=== PATIENT | female | born 1945 ===

== ENCOUNTER 2017-01-20 20:38 | Inpatient (IN) | payer MEDICARE, OTHER ==
[2017-01-20 22:35] LABS: BASO # 0.1 K/uL (0.0-0.2); BASO % 0.7 % (0.0-2.0); EOS # 0.3 K/uL (0.0-0.7); HEMATOCRIT 41.2 % (34.0-47.0); LYMPH # 2.8 K/uL (1.0-4.3); MEAN CELL VOLUME 82.8 fL (81.0-99.0); MEAN CORPUSCULAR HGB CONC 32.6 g/dL (33.0-37.0); MEAN PLATELET VOLUME 8.2 fL (7.2-11.7); MONO # 0.9 K/uL (0.0-0.8); MONO % 10.8 % (0.0-10.0); NRBC % 0.1 % (0.0-2.0); RED CELL DISTRIBUTION WIDTH 13.4 % (11.5-14.5); WHITE BLOOD COUNT 8.3 K/uL (4.8-10.8)
[2017-01-20 22:42] LABS: BILIRUBIN,TOTAL 0.8 mg/dL (0.2-1.3)
[2017-01-20 22:43] LABS: TOTAL PROTEIN 8.9 g/dL (6.3-8.3)
--- NOTE | 2017-01-20 22:47 | C.PDOC ---
History Of Present Illness 71 y/o female presents to the ED with complains of sudden onset bright red blood per rectum this afternoon. Pt denies rectal pain, abdominal pain, fever, dizziness, lightheadedness, chest pain, SOB or any other complaints. PMHx cardiac disease. Time Seen by Provider: 01/20/17 22:01 Chief Complaint (Nursing): GI Problem History Per: Patient History/Exam Limitations: no limitations Onset/Duration Of Symptoms: Hrs Current Symptoms Are (Timing): Still Present Amount of Blood Loss: Large Severity: Moderate Quality Of Discomfort: denies: "Pain" Associated Symptoms: Rectal Bleeding. denies: Vomiting, Diarrhea, Lightheadedness Recent travel outside of the [place]: No Past Medical History Reviewed: Historical Data, Nursing Documentation, Vital Signs Vital Signs: Last Vital Signs Temp 98.2 F 01/20/17 22:06 Pulse 63 01/20/17 22:06 Resp 16 01/20/17 22:06 BP 186/77 H 01/20/17 22:06 Pulse Ox 97 01/20/17 22:48 - Medical History PMH: CHF, COPD, HTN Surgical History: Coronary Stent (2 stents) Family History: States: Unknown Family Hx - Social History Hx Tobacco Use: No Hx Alcohol Use: No Hx Substance Use: No - Immunization History Hx Tetanus Toxoid Vaccination: No Hx Influenza Vaccination: Yes Hx Pneumococcal Vaccination: Yes Review Of Systems Except As Marked, All Systems Reviewed And Found Negative. Constitutional: Negative for: Fever Cardiovascular: Negative for: Chest Pain Respiratory: Negative for: Shortness of Breath Gastrointestinal: Positive for: Hematochezia. Negative for: Vomiting, Abdominal Pain, Diarrhea, Rectal Pain Neurological: Negative for: Dizziness Physical Exam - Physical Exam Appears: Non-toxic, No Acute Distress Skin: Warm, Dry, No Rash Head: Atraumatic, Normacephalic Chest: Symmetrical Cardiovascular: Rhythm Regular, No Murmur Respiratory: Normal Breath Sounds, No Rales, No Rhonchi, No Wheezing Gastrointestinal/Abdominal: Normal Exam, Soft, No Tenderness Rectal: Maroon Stool (copious amounts), No Hemorrhoids Extremity: Normal ROM Extremity: Bilateral: Atraumatic Neurological/Psych: Oriented x3, Normal Speech Gait: Steady ED Course And Treatment - Laboratory Results Result Diagrams: 01/20/17 22:28 01/20/17 22:28 Lab Interpretation: No Acute Changes O2 Sat by Pulse Oximetry: 97 (on room air) Pulse Ox Interpretation: Normal Reevaluation Time: 23:22 Reassessment Condition: Unchanged (Patient remains stable.) - Physician Consult Information Time Consulting Physician Contacted: 23:22 Physician Contacted: Marta Javier Outcome Of Conversation: Patient to be admitted for GI evaluation. Medical Decision Making Medical Decision Making: Plan: labs, IV fluids; admit Disposition - Disposition Disposition: HOSPITALIZED Disposition Time: 23:23 Condition: SERIOUS - POA Present On Arrival: None - Clinical Impression Clinical Impression: Gastrointestinal hemorrhage - Scribe Statement The provider has reviewed the documentation as recorded by the Sidney Russell Provider Attestation: All medical record entries made by the Sidney were at my direction and personally dictated by me. I have reviewed the chart and agree that the record accurately reflects my personal performance of the history, physical exam, medical decision making, and the department course for this patient. I have also personally directed, reviewed, and agree with the discharge instructions and disposition.
[2017-01-21] MEDS: Sodium Chloride 0.9% 1,000 ML IV SCH ×2 (00:23→07:57)
[2017-01-21 04:39] LABS: BASO # 0.1 K/uL (0.0-0.2); BASO % 0.8 % (0.0-2.0); EOS # 0.3 K/uL (0.0-0.7); EOS % 3.8 % (0.0-4.0); HEMATOCRIT 35.5 % (34.0-47.0); LYMPH # 3.1 K/uL (1.0-4.3); LYMPH % 37.3 % (20.0-40.0); MEAN CELL VOLUME 82.8 fL (81.0-99.0); MEAN CORPUSCULAR HEMOGLOBIN 27.7 pg (27.0-31.0); MEAN CORPUSCULAR HGB CONC 33.5 g/dL (33.0-37.0); MEAN PLATELET VOLUME 7.8 fL (7.2-11.7); MONO # 0.8 K/uL (0.0-0.8); MONO % 9.2 % (0.0-10.0); RED CELL DISTRIBUTION WIDTH 13.3 % (11.5-14.5); WHITE BLOOD COUNT 8.4 K/uL (4.8-10.8)
[2017-01-21] MEDS ORDERED: Pantoprazole 80 MG in Sodium Chloride 0.9% 100 ML IVP ONE (07:00)
[2017-01-21] MEDS ORDERED: Pantoprazole 80 MG in Sodium Chloride 0.9% 100 ML IV ONE (08:00)
[2017-01-21] MEDS ORDERED: Peg-Electrolyte Oral Soln 4L (Golytely) PO STA (08:09)
[2017-01-21] MEDS ORDERED: Bisacodyl 5mg EC Tab PO STA (08:09)
[2017-01-21] MEDS: Pantoprazole 80 MG in Sodium Chloride 0.9% 100 ML IV SCH ×2 (08:23→17:40)
--- NOTE | 2017-01-21 09:52 | CP.PCM.CON ---
<Magi Finney - Last Filed: 01/21/17 10:51> History of Present Illness - History of Present Illness History of Present Illness: Gastroenterology Fellow/PGY4 Consult Note 71 year old female with history of Hypertension, Arthritis, and CAD s/p stents on Plavix (last dose on the morning of 01/20) presenting with hematochezia. Patient describes feeling dizzy all day yesterday. She was able to eat three normal meals without nausea or vomiting. Around 830PM, she notes a wet sensation in her underpants revealing bright red blood with clots. Shortly after , while ambulating she again felt a gush of blood with clots followed by ER presentation. She had an additional four episodes since ER presentation and two additional episodes in the ICU. Denies abdominal pain, bloating, indigestion, heartburn, acid reflux, distension, lightheadedness, syncopal episode, melena, hematemesis, chest pain, shortness of breath, weight loss, diarrhea, or constipation. Admits to use of Ibuprofen twice a week for right arm arthritis. Prior colonoscopy about ten years ago endorsed to be normal. No prior EGD. Family- denies colon cancer Social-Quit tobacco in 2010, previous 1 pach every two days for forty years, denies alcohol or illicit drug use Surgery-cardiac stents Review of Systems - Review of Systems Review of Systems: A 12-point review of systems negative except for as above Past Patient History - Past Medical History & Family History Past Medical History?: Yes - Past Social History Smoking Status: Former Smoker - CARDIAC Hx Congestive Heart Failure: Yes Hx Hypertension: Yes - PULMONARY Hx Chronic Obstructive Pulmonary Disease (COPD): Yes - NEUROLOGICAL Hx Neurological Disorder: No - HEENT Hx HEENT Problems: No - RENAL Hx Chronic Kidney Disease: No - ENDOCRINE/METABOLIC Hx Endocrine Disorders: No - HEMATOLOGICAL/ONCOLOGICAL Hx Blood Disorders: No - INTEGUMENTARY Hx Dermatological Problems: No - MUSCULOSKELETAL/RHEUMATOLOGICAL Hx Musculoskeletal Disorders: No Hx Falls: No - GASTROINTESTINAL Hx Gastrointestinal Disorders: No - GENITOURINARY/GYNECOLOGICAL Hx Genitourinary Disorders: No - PSYCHIATRIC Hx Substance Use: No - SURGICAL HISTORY Hx Coronary Stent: Yes (2 stents) - ANESTHESIA Hx Anesthesia: Yes Hx Anesthesia Reactions: No Meds Allergies/Adverse Reactions: Allergies Allergy/AdvReac Type Severity Reaction Status Date / Time peanut Allergy Verified 01/20/17 22:13 Penicillins Allergy Verified 01/20/17 22:13 - Medications Medications: Current Medications Carvedilol (Coreg) 12.5 mg PO DAILY [facility] Sodium Chloride (Sodium Chloride 0.9%) 1,000 mls @ 100 mls/hr IV .Q10H [facility] Last Admin: 01/21/17 07:57 Dose: 100 mls/hr Pantoprazole Sodium 80 mg/ (Sodium Chloride) 100 mls @ 10 mls/hr IV .Q10H [facility] PRN Reason: 8 MG/HR Last Admin: 01/21/17 08:23 Dose: 10 mls/hr Physical Exam - Constitutional Appears: Non-toxic, No Acute Distress - Head Exam Head Exam: ATRAUMATIC, NORMOCEPHALIC - Eye Exam Eye Exam: EOMI, PERRL Pupil Exam: PERRL. absent: Miosis, Mydriatic - ENT Exam ENT Exam: Mucous Membranes Moist, Normal Oropharynx - Neck Exam Neck exam: Positive for: Full Rom, Normal Inspection - Respiratory Exam Respiratory Exam: Clear to Auscultation Bilateral. absent: Rales, Rhonchi, Wheezes - Cardiovascular Exam Cardiovascular Exam: RRR, +S1, +S2. absent: Gallop, Rubs - GI/Abdominal Exam GI & Abdominal Exam: Normal Bowel Sounds, Soft. absent: Distended, Firm, Guarding, Organomegaly, Rebound, Rigid, Tenderness - Extremities Exam Extremities exam: Positive for: full ROM. Negative for: pedal edema - Neurological Exam Neurological exam: Alert - Psychiatric Exam Psychiatric exam: Normal Affect, Normal Mood - Skin Skin Exam: Dry, Intact, Normal Color, Warm Results - Vital Signs Recent Vital Signs: Last Vital Signs Temp 97.7 F 01/21/17 04:21 Pulse 71 01/21/17 04:21 Resp 18 01/21/17 04:21 BP 160/68 H 01/21/17 04:21 Pulse Ox 95 01/21/17 04:21 - Labs Result Diagrams: 01/21/17 04:31 01/20/17 22:28 Labs: Laboratory Results - last 24 hr 01/21/17 04:31 WBC 8.4 RBC 4.28 Hgb 11.9 Hct 35.5 MCV 82.8 MCH 27.7 MCHC 33.5 RDW 13.3 Plt Count 235 MPV 7.8 Neut % (Auto) 48.9 L Lymph % (Auto) 37.3 Drew % (Auto) 9.2 Eos % (Auto) 3.8 Baso % (Auto) 0.8 Neut # 4.1 Lymph # 3.1 Drew # 0.8 Eos # 0.3 Baso # 0.1 Assessment & Plan - Assessment and Plan (Free Text) Assessment: 71 year old female with history of Hypertension, Arthritis, and CAD s/p stents on Plavix (last dose on the morning of 01/20) presenting with hematochezia. Laboratory findings show stable blood count with note of one gram drop since admission. Prior colonoscopy about ten years ago endorsed to be normal. No prior EGD. Plan: >hemodynamically stable >on beta mickey at home >active lower GI bleed with recurrent episodes >DDX: diverticulosis, AVM, ulcer- NSAID use >PPI drip >serial H/H 1030 >Type and Cross >urgent colonoscopy >bowel prep- GoLytely, Dulcolax 10mg, tap water enema >clear liquids, NPO since 1015AM >further recommendations based on colonoscopy results <Yaya Pendleton - Last Filed: 01/21/17 12:26> Meds - Medications Medications: Current Medications Carvedilol (Coreg) 12.5 mg PO DAILY [facility] Last Admin: 01/21/17 09:48 Dose: 12.5 mg Sodium Chloride (Sodium Chloride 0.9%) 1,000 mls @ 100 mls/hr IV .Q10H [facility] Last Admin: 01/21/17 07:57 Dose: 100 mls/hr Pantoprazole Sodium 80 mg/ (Sodium Chloride) 100 mls @ 10 mls/hr IV .Q10H [facility] PRN Reason: 8 MG/HR Last Admin: 01/21/17 08:23 Dose: 10 mls/hr Lactated Ringer's (Lactated Ringer's) 1,000 mls @ 125 mls/hr IV .Q8H [facility] Results - Vital Signs Recent Vital Signs: Last Vital Signs Temp 97.9 F 01/21/17 11:29 Pulse 63 01/21/17 11:29 Resp 17 01/21/17 11:29 BP 177/65 H 01/21/17 11:29 Pulse Ox 100 01/21/17 11:29 - Labs Result Diagrams: 01/21/17 10:46 01/20/17 22:28 Labs: Laboratory Results - last 24 hr 01/21/17 01/21/17 04:31 10:46 WBC 8.4 7.5 RBC 4.28 4.77 Hgb 11.9 13.1 Hct 35.5 39.9 MCV 82.8 83.6 MCH 27.7 27.5 MCHC 33.5 32.9 L RDW 13.3 13.3 Plt Count 235 279 MPV 7.8 7.8 Neut % (Auto) 48.9 L 56.4 Lymph % (Auto) 37.3 30.1 Drew % (Auto) 9.2 9.1 Eos % (Auto) 3.8 3.6 Baso % (Auto) 0.8 0.8 Neut # 4.1 4.2 Lymph # 3.1 2.3 Drew # 0.8 0.7 Eos # 0.3 0.3 Baso # 0.1 0.1 Blood Type O POSITIVE Antibody Screen Negative Attending/Attestation - Attestation I have personally seen and examined this patient.: Yes I have fully participated in the care of the patient.: Yes I have reviewed all pertinent clinical information: Yes Notes (Text): 01/21/17 12:20 I have seen and examined patient with GI fellow. Agree with above documentation with the following additions. In brief, this is a 71 year old female with history of CAD s/p stent (2010) on plavix, HTN, arthritis who presents to hospital with complaint of rectal bleeding. Her symptoms began yesterday at approximately 830 pm when she developed two episodes of hematochezia along with feeling of dizziness throughout the day. Prior to this she was in usual state of health. She came to hospital and had several additional episodes of gross hematochezia and was admitted to ICU critical care. She otherwise denies abdominal pain, nausea, vomiting, fever/chills, weight loss, or similar prior episodes. She had a colonoscopy 10 years ago which was normal as per patient. HTN CAD s/p stent in 2010 on plavix (last dose yesterday) Arthritis Rectal bleeding - repeated acute episodes, posing threat to patient life, currently in critical care unit - NPO - Continue to monitor H/H - Will plan for urgent colonoscopy for evaluation of rectal bleeding, rule out underlying malignancy - Golytely bowel preparation with dulcolax now, plan for urgent procedure in afternoon - Further plan pending endoscopic findings
[2017-01-21 10:53] LABS: BASO # 0.1 K/uL (0.0-0.2); BASO % 0.8 % (0.0-2.0); EOS # 0.3 K/uL (0.0-0.7); EOS % 3.6 % (0.0-4.0); HEMATOCRIT 39.9 % (34.0-47.0); LYMPH # 2.3 K/uL (1.0-4.3); LYMPH % 30.1 % (20.0-40.0); MEAN CELL VOLUME 83.6 fL (81.0-99.0); MEAN CORPUSCULAR HEMOGLOBIN 27.5 pg (27.0-31.0); MEAN CORPUSCULAR HGB CONC 32.9 g/dL (33.0-37.0); MEAN PLATELET VOLUME 7.8 fL (7.2-11.7); MONO # 0.7 K/uL (0.0-0.8); MONO % 9.1 % (0.0-10.0); NRBC % 0.1 % (0.0-2.0); RED CELL DISTRIBUTION WIDTH 13.3 % (11.5-14.5); WHITE BLOOD COUNT 7.5 K/uL (4.8-10.8)
[2017-01-21] MEDS ORDERED: Propofol 10 mg/ml Inj (20 ML) ONE (10:59)
[2017-01-21] MEDS ORDERED: Midazolam 2 MG/2 ML VIAL ONE (10:59)
[2017-01-21] MEDS ORDERED: Etomidate 20 mg/10ml Inj IV ONE (12:04)
[2017-01-21] MEDS ORDERED: Lactated Ringer's 1,000 ML IV SCH (12:15)
--- NOTE | 2017-01-21 19:59 | HP ---
HISTORY OF PRESENT ILLNESS: This is a 71-year-old female with history of multiple medical p roblems, presented to Emergency Room because of rectal bleeding that started a few hours prior to thi s admission. The patient was evaluated in the Emergency Room and she was found to have dark bloody s tool. The patient was admitted after type and cross for 2 units of packed RBCs and for monitoring of hemoglobin and hematocrit and monitoring for further rectal bleeding. The patient denied to have an y abdominal pain associated with her symptoms, denied to have any previous similar symptoms. The pat ient has been told to do colonoscopy frequently and until this admission the patient never had any co lonoscopy done. REVIEW OF SYSTEMS: Other review of systems is negative. ALLERGIES: POSITIVE FOR PENICILLIN AND PEANUTS. SOCIAL HISTORY: Positive for a smoker, more than 30 years. Denies EtOH or substance abuse. FAMILY HISTORY: Noncontributory. PAST MEDICAL HISTORY: Hypertension, coronary artery disease, hypercholesterolemia. HOME MEDICATIONS: Hydralazine 50 mg twice a day, amlodipine 2.5 mg daily, Crestor 20 mg daily, Pepci d 20 mg daily, Plavix 75 mg daily and Coreg 12.5 mg twice a day. PHYSICAL EXAMINATION: GENERAL: The patient is in bed, comfortable, not in any cardiopulmonary distress. VITAL SIGNS: Blood pressure of 166/76, temperature 97.4, respiratory rate 18 and pulses 61. HEENT: Pupils equal, reactive to light. Normal-appearing mucosa of the conjunctivae, oropharyngeal and nasal membrane mucosa. NECK: Supple, no JVD, no carotid bruit, no lymph node, no thyromegaly. CHEST AND LUNGS: Bilateral symmetrical expansion, good air exchange, no rales, no rhonchi. CARDIOVASCULAR: PMI not localized. S1, S2. No additional sounds. ABDOMEN: Normoactive bowel sounds, no tenderness, no organomegaly, no masses. EXTREMITIES: No cyanosis, no clubbing, no edema. CENTRAL NERVOUS SYSTEM: Alert, awake, oriented x 3. No neurological deficits could be appreciated. ASSESSMENT: 1. Painless rectal bleeding. Differential diagnosis includes diverticulosis, arteriovenous malforma tion, hemorrhoids, internal hemorrhoids. 2. Hypertension. 3. Coronary artery disease. PLAN: GI consult for possible colonoscopy and monitor hemoglobin and hematocrit. I will resume anti hypertensive medications, but keep patient n.p.o. [facility] Casandra Javier MD cc: [phone] TT: 01/21/2017 19:58:57 [facility] # [id number] mn
[2017-01-22] MEDS: Pantoprazole 80 MG in Sodium Chloride 0.9% 100 ML IV SCH (02:02)
[2017-01-22 09:05] LABS: BASO % 0.7 % (0.0-2.0); EOS # 0.3 K/uL (0.0-0.7); EOS % 4.3 % (0.0-4.0); HEMATOCRIT 36.6 % (34.0-47.0); LYMPH # 2.6 K/uL (1.0-4.3); MEAN CORPUSCULAR HEMOGLOBIN 26.8 pg (27.0-31.0); MEAN CORPUSCULAR HGB CONC 32.4 g/dL (33.0-37.0); MEAN PLATELET VOLUME 7.9 fL (7.2-11.7); MONO # 0.6 K/uL (0.0-0.8); MONO % 8.8 % (0.0-10.0); NRBC % 0.1 % (0.0-2.0); RED CELL DISTRIBUTION WIDTH 13.4 % (11.5-14.5); WHITE BLOOD COUNT 6.6 K/uL (4.8-10.8)
[2017-01-22 09:12] LABS: CHLORIDE 99 mmol/L (98-107)
[2017-01-22 09:13] LABS: SODIUM 140 mmol/L (132-148)
[2017-01-22 09:15] LABS: ALKALINE PHOSPHATASE 76 U/L (38-126); ALT/SGPT 19 U/L (9-52); AST/SGOT 35 U/L (14-36); BILIRUBIN,TOTAL 0.4 mg/dL (0.2-1.3); BLOOD UREA NITROGEN 16 mg/dL (7-17); CARBON DIOXIDE 26 mmol/L (22-30); GFR AFRICAN-AMERICAN > 60; GLUCOSE,RANDOM 95 mg/dL (65-105); TOTAL PROTEIN 7.4 g/dL (6.3-8.3)
[2017-01-22 09:16] LABS: CALCIUM 8.8 mg/dl (8.6-10.4)
--- NOTE | 2017-01-22 11:32 | CP.PCM.PN ---
<RegMagi - Last Filed: 01/22/17 11:41> Subjective - Date & Time of Evaluation Date of Evaluation: 01/22/17 Time of Evaluation: 11:32 - Subjective Subjective: Gastroenterology Fellow/PGY4 Progress Note Patient feels well. Denies further episodes of rectal bleeding. Tolerating clear liquids. A 12-point review of systems negative except for as above. Objective - Vital Signs/Intake and Output Vital Signs (last 24 hours): Temp Pulse Resp BP Pulse Ox 98 F 69 17 113/90 97 01/22/17 08:00 01/22/17 10:00 01/22/17 10:00 01/22/17 10:21 01/22/17 10:00 Intake and Output: 01/22/17 01/22/17 06:59 18:59 Intake Total 330 10 Output Total 750 Balance -420 10 - Medications Medications: Current Medications Amlodipine Besylate (Norvasc) 2.5 mg PO DAILY [facility] Last Admin: 01/21/17 14:06 Dose: 2.5 mg Carvedilol (Coreg) 12.5 mg PO DAILY [facility] Last Admin: 01/22/17 10:21 Dose: 12.5 mg Hydralazine HCl (Apresoline) 50 mg PO BID [facility] Last Admin: 01/21/17 22:28 Dose: 50 mg Pantoprazole Sodium 80 mg/ (Sodium Chloride) 100 mls @ 10 mls/hr IV .Q10H [facility] PRN Reason: 8 MG/HR Last Admin: 01/22/17 02:02 Dose: 10 mls/hr - Labs Labs: 01/22/17 08:59 01/22/17 08:59 PT 11.2 SECONDS (9.7-12.2) 01/20/17 22:28 INR 1.0 01/20/17 22:28 APTT 34 SECONDS (21-34) 01/20/17 22:28 - Constitutional Appears: Non-toxic, No Acute Distress - Head Exam Head Exam: ATRAUMATIC, NORMOCEPHALIC - Eye Exam Eye Exam: EOMI, PERRL Pupil Exam: absent: Miosis, Mydriatic, PERRL - ENT Exam ENT Exam: Mucous Membranes Moist, Normal Oropharynx - Neck Exam Neck Exam: Full ROM, Normal Inspection - Respiratory Exam Respiratory Exam: Clear to Ausculation Bilateral. absent: Rales, Rhonchi, Wheezes - Cardiovascular Exam Cardiovascular Exam: RRR, +S1, +S2. absent: Gallop, Rubs - GI/Abdominal Exam GI & Abdominal Exam: Soft, Normal Bowel Sounds. absent: Distended, Firm, Guarding, Rigid, Tenderness, Mass, Organomegaly, Rebound - Extremities Exam Extremities Exam: Full ROM. absent: Pedal Edema - Neurological Exam Neurological Exam: Alert, Awake - Psychiatric Exam Psychiatric exam: Normal Affect, Normal Mood - Skin Skin Exam: Dry, Intact, Normal Color, Warm Assessment and Plan - Assessment and Plan (Free Text) Assessment: 71 year old female with history of Hypertension, Arthritis, and CAD s/p stents on Plavix (last dose on the morning of 01/20) presenting with hematochezia. Laboratory findings show stable blood count not requiring transfusion. Prior colonoscopy about ten years ago endorsed to be normal. No prior EGD. Plan: >POD1 colonoscopy with extensive sigmoid diverticulosis >advance to regular diet >de-escalate PPI drip >H/H stable >no signs of recurrent overt GI blood loss >primary team managing restarting Plavix with history of cardiac stents >outpatient follow up once restarted on Plavix to monitor for recurrent GI blood loss <Clifford Raphael - Last Filed: 01/22/17 13:27> Objective - Vital Signs/Intake and Output Vital Signs (last 24 hours): Temp Pulse Resp BP Pulse Ox 98 F 69 17 113/90 97 01/22/17 08:00 01/22/17 10:00 01/22/17 10:00 01/22/17 10:21 01/22/17 10:00 Intake and Output: 01/22/17 01/22/17 06:59 18:59 Intake Total 330 10 Output Total 750 Balance -420 10 - Medications Medications: Current Medications Amlodipine Besylate (Norvasc) 2.5 mg PO DAILY [facility] Last Admin: 01/21/17 14:06 Dose: 2.5 mg Carvedilol (Coreg) 12.5 mg PO DAILY [facility] Last Admin: 01/22/17 10:21 Dose: 12.5 mg Hydralazine HCl (Apresoline) 50 mg PO BID [facility] Last Admin: 01/22/17 10:00 Dose: Not Given Pantoprazole Sodium (Protonix Ec Tab) 40 mg PO DAILY [facility] - Labs Labs: 01/22/17 08:59 01/22/17 08:59 PT 11.2 SECONDS (9.7-12.2) 01/20/17 22:28 INR 1.0 01/20/17 22:28 APTT 34 SECONDS (21-34) 01/20/17 22:28 Attending/Attestation - Attestation I have personally seen and examined this patient.: Yes I have fully participated in the care of the patient.: Yes I have reviewed all pertinent clinical information, including history, physical exam and plan: Yes Notes (Text): 01/22/17 13:24 71 year old female with history of CAD s/p stent (2010) on plavix, HTN, arthritis who presents to hospital with complaint of rectal bleeding now s/p colonoscopy 1. Rectal bleeding 2. Diverticulosis 3. Colon polyp Plan: -likely diverticular bleeding in the setting of plavix use -bleeding resolved -diet as tolerated -recommend outpatient follow up for polyp removal when off of plavix -will sign off at this time
--- NOTE | 2017-01-22 12:07 | PCM.HF ---
Heart Failure Core Measure - Heart Failure Ejection Fraction: 40 % or Greater Left Ventricular Function to be assessed after discharge: Yes ELIANA Inhibitor Prescribed: No Contraindication/Reason for not providing: BP is low Beta-Piotr Prescribed: Carvedilol Angiotensin II Receptor Piotr Prescribed: No Contraindication/Reason for not providing: on hydralazine AnticoagulationTherapy for Atrial Fibrillation/Atrialflutter: No Contraindication/Reason for not providing: no afib Aldosterone Antagonist Prescribed: No Contraindication/Reason for not providing: BP controlled Hydralazine Nitrate Prescribed: Yes Implantable Cardioverter Defibrillator Therapy: No Contraindication/Reason for not providing: not indicated Cardiac Resynchronization Therapy Prescribed: No Contraindication/Reason for not providing: not indicated - Follow up Will be discharged to: Home Follow Up Date (must be within 7 days from discharge): 01/24/18 Follow Up Time: 09:00
[2017-01-22 16:05] VITALS: TEMP 97.9
[2017-01-22 16:06] VITALS: PULSE 65
[2017-01-22 16:07] VITALS: BP 111/46; RESP 19; O2SAT 97
--- NOTE | 2017-01-22 16:41 | CP.PCM.PN ---
Subjective - Date & Time of Evaluation Date of Evaluation: 01/15/17 Time of Evaluation: 11:00 - Subjective Subjective: Alert, orientedx3, NAD, tolerating diet. Objective - Vital Signs/Intake and Output Vital Signs (last 24 hours): Temp Pulse Resp BP Pulse Ox 97.9 F 65 19 111/46 L 97 01/22/17 12:00 01/22/17 14:00 01/22/17 14:00 01/22/17 14:00 01/22/17 14:00 Intake and Output: 01/22/17 01/22/17 06:59 18:59 Intake Total 330 670 Output Total 750 600 Balance -420 70 - Labs Labs: 01/22/17 08:59 01/22/17 08:59 PT 11.2 SECONDS (9.7-12.2) 01/20/17 22:28 INR 1.0 01/20/17 22:28 APTT 34 SECONDS (21-34) 01/20/17 22:28 Assessment and Plan - Assessment and Plan (Free Text) Assessment: Patient is seen and examined in the ICU. Alert, and oriented, no bleeding, no complaints of pain.Cleared by GI, Advanced diet. d/w DR Javier , discharge plan for today. Will hold plavix for now, advised to follow up with cardiology to re- start plavix.
[2017-01-23] MEDS ORDERED: Pantoprazole 40 mg EC Tab PO SCH (10:00)
--- NOTE | 2017-01-23 21:22 | DS ---
REASON FOR ADMISSION: This was a 71-year-old female, with history of multiple medical probl ems, who was admitted for rectal bleeding. COURSE OF HOSPITALIZATION: The patient was admitted to telemetry floor and she initially was kept n. p.o. and had a GI consultation done by Dr. Pendleton's group. The patient underwent colonoscopy that adisha wed extensive diverticulosis, but there was no active bleeding. The patient's hemoglobin remained st able, and the patient's diet was advanced and tolerated well and she was discharged in a stable condi tion, to follow up with his primary care physician as well as with GI. The patient was asked to resu me all her home medications. FINAL DIAGNOSES: 1. Acute rectal bleeding, secondary to diverticulosis. 2. Hypertension. 3. Coronary artery disease. 4. Hypercholesterolemia. [facility] Casandra Javier MD cc: [phone] TT: 01/23/2017 21:21:33 ln
--- NOTE | 2017-02-22 23:21 | CARD ---
APPROVED REPORT EKG Measurement Heart [id number] OR [id number] <Conclusion> Sinus bradycardia Otherwise normal ECG
== END 2017-01-22 15:00 | disposition home or self-care (01) | DRG 813 ==
LOC: C.ER 20:38 → C.9E 23:23 → C.9I 01-21 06:56
PROVIDERS: ADMIT Internal Medicine; ATTEND Internal Medicine
PROC: 30233N1 Transfusion of Nonautologous Red Blood Cells into Peripheral Vein, Percutaneous Approach (ICD-10-PCS; 2017-01-20)
PROC: 0DJD8ZZ Inspection of Lower Intestinal Tract, Via Natural or Artificial Opening Endoscopic (ICD-10-PCS; principal; 2017-01-21 11:27)
DX: D68.32 Hemorrhagic disorder due to extrinsic circulating anticoagulants (principal); J44.9 Chronic obstructive pulmonary disease, unspecified; K57.31 Diverticulosis of large intestine without perforation or abscess with bleeding; I50.9 Heart failure, unspecified; I11.0 Hypertensive heart disease with heart failure; Z95.5 Presence of coronary angioplasty implant and graft; Z88.0 Allergy status to penicillin; F17.210 Nicotine dependence, cigarettes, uncomplicated; I25.10 Atherosclerotic heart disease of native coronary artery without angina pectoris; E78.00 Pure hypercholesterolemia, unspecified; M19.90 Unspecified osteoarthritis, unspecified site; K25.9 Gastric ulcer, unspecified as acute or chronic, without hemorrhage or perforation; T39.395A Adverse effect of other nonsteroidal anti-inflammatory drugs [NSAID], initial encounter; K63.5 Polyp of colon; T45.525A Adverse effect of antithrombotic drugs, initial encounter; K64.1 Second degree hemorrhoids

== ENCOUNTER 2017-02-11 06:38 | Day surgery (SDC) | payer MEDICARE, OTHER ==
[2017-02-08 11:50] VITALS: BMI 25.6
[2017-02-11 07:32] VITALS: RESP 12
[2017-02-11] MEDS ORDERED: Lactated Ringer's 500 ML IV ONE (07:51)
[2017-02-11] MEDS ORDERED: Propofol 10 mg/ml Inj (20 ML) ONE (08:05)
[2017-02-11 09:06] VITALS: TEMP 97.3; O2SAT 98
[2017-02-11 09:08] VITALS: BP 100/59; PULSE 69
== END 2017-02-11 09:42 | disposition home or self-care (01) ==
LOC: C.ENDO 06:38
PROVIDERS: ATTEND Internal Medicine Gastroenterology
DX: D12.4 Benign neoplasm of descending colon (principal); K63.5 Polyp of colon; K57.30 Diverticulosis of large intestine without perforation or abscess without bleeding; K64.1 Second degree hemorrhoids
CPT/HCPCS: 45380; 45385; 88305; J2704; J7120

== ENCOUNTER 2017-02-23 13:38 | Inpatient (IN) | payer MEDICARE, OTHER ==
[2017-02-23 13:39] VITALS: BMI 25.6
[2017-02-23] MEDS ORDERED: Albuterol-Ipratrop 3 mg / 0.5 (3 ml) UD ONE ×3 (13:49→15:27)
[2017-02-23] MEDS ORDERED: Aspirin 325 mg EC Tablets PO STA (15:03)
[2017-02-23] MEDS ORDERED: Aspirin 325 mg EC Tablets PO ONE (15:22)
[2017-02-23] MEDS: Albuterol-Ipratrop 3 mg / 0.5 (3 ml) UD IH SCH ×3 (15:30→15:45)
[2017-02-23 15:35] LABS: BASO # 0.1 K/uL (0.0-0.2); BASO % 0.7 % (0.0-2.0); EOS # 0.5 K/uL (0.0-0.7); EOS % 4.8 % (0.0-4.0); LYMPH # 2.6 K/uL (1.0-4.3); LYMPH % 26.6 % (20.0-40.0); MEAN CELL VOLUME 83.4 fL (81.0-99.0); MEAN CORPUSCULAR HEMOGLOBIN 27.3 pg (27.0-31.0); MEAN CORPUSCULAR HGB CONC 32.7 g/dL (33.0-37.0); MEAN PLATELET VOLUME 8.4 fL (7.2-11.7); MONO % 10.2 % (0.0-10.0); RED CELL DISTRIBUTION WIDTH 12.7 % (11.5-14.5); WHITE BLOOD COUNT 9.7 K/uL (4.8-10.8)
[2017-02-23 15:46] LABS: CHLORIDE 102 mmol/L (98-107); SODIUM 141 mmol/L (132-148)
[2017-02-23 15:47] LABS: POTASSIUM 3.9 mmol/L (3.6-5.2)
[2017-02-23 15:49] LABS: ALKALINE PHOSPHATASE 84 U/L (38-126); ALT/SGPT 15 U/L (9-52); AST/SGOT 35 U/L (14-36); BILIRUBIN,TOTAL 0.5 mg/dL (0.2-1.3); BLOOD UREA NITROGEN 15 mg/dL (7-17); CARBON DIOXIDE 29 mmol/L (22-30); GFR AFRICAN-AMERICAN > 60; GLUCOSE,RANDOM 64 mg/dL (65-105); TOTAL PROTEIN 7.6 g/dL (6.3-8.3)
[2017-02-23 15:50] LABS: CALCIUM 8.8 mg/dl (8.6-10.4)
--- NOTE | 2017-02-23 15:52 | C.PDOC ---
History Of Present Illness 71 year old patient, with a past medical history of CHF and COPD, presents to the emergency department complaining of shortness of breath at home just prior to arrival. She has a pump which gave her minimal relief. Patient reports she has not smoked cigarettes since 2010. She also denies having a nebulizer, using home oxygen, or any chest pain. Time Seen by Provider: 02/23/17 14:35 Chief Complaint (Nursing): Shortness Of Breath History Per: Patient History/Exam Limitations: no limitations Onset/Duration Of Symptoms: Mins (just prior to arrival) Current Symptoms Are (Timing): Still Present Current Respiratory Medications: See Home Med List Severity: Mild Recent travel outside of the [place]: No Past Medical History Reviewed: Historical Data, Nursing Documentation, Vital Signs Vital Signs: Last Vital Signs Temp 98.6 F 02/23/17 17:17 Pulse 73 02/23/17 17:17 Resp 22 02/23/17 17:17 BP 148/54 L 02/23/17 17:17 Pulse Ox 96 02/23/17 17:17 - Medical History PMH: CHF, Colonic Polyps (NOT REMOVED PT. WAS ON PLAVIX.), COPD, HTN, Hypercholesterolemia Surgical History: Coronary Stent (2 stents) - At [facility] Procedures INSPECTION OF LOWER INTESTINAL TRACT, ENDO (01/20/17) TRANSFUSE NONAUT RED BLOOD CELLS IN PERIPH VEIN, PERC (01/20/17) Family History: States: Unknown Family Hx - Social History Hx Tobacco Use: No Hx Alcohol Use: No Hx Substance Use: No - Immunization History Hx Tetanus Toxoid Vaccination: No Hx Influenza Vaccination: Yes Hx Pneumococcal Vaccination: Yes Review Of Systems Except As Marked, All Systems Reviewed And Found Negative. Cardiovascular: Negative for: Chest Pain Respiratory: Positive for: Shortness of Breath Physical Exam - Physical Exam Appears: Non-toxic, No Acute Distress Skin: Warm, Dry Head: Atraumatic, Normacephalic Eye(s): bilateral: Normal Inspection, EOMI Ear(s): Bilateral: Normal Nose: Normal Oral Mucosa: Moist Throat: Normal Neck: Normal ROM, Supple Chest: Symmetrical Cardiovascular: Rhythm Regular Respiratory: No Accessory Muscle Use, No Rales, No Rhonchi, No Wheezing, Other ( poor air entry) Gastrointestinal/Abdominal: Soft, No Tenderness Back: Normal Inspection Extremity: Normal ROM Neurological/Psych: Oriented x3 ED Course And Treatment - Laboratory Results Result Diagrams: 02/23/17 15:29 02/23/17 15:29 O2 Sat by Pulse Oximetry: 97 (room air) Pulse Ox Interpretation: Normal Progress Note: Plan: -EKG. -Labs. -Chest x-ray. -Solu-Medrol, Duoneb, Ecotrin Disposition Discussed With Dr.: Marta Javier Doctor Will See Patient In The: Hospital Counseled Patient/Family Regarding: Studies Performed, Diagnosis - Disposition Disposition: HOSPITALIZED Disposition Time: 18:16 Condition: GUARDED - Clinical Impression Clinical Impression: Chronic congestive heart failure, Chr obstructive pulmonary disease w/ acute lower respiratory infxn, Dyspnea - Scribe Statement The provider has reviewed the documentation as recorded by the Scribisabela Hardy Provider Attestation: All medical record entries made by the Scribe were at my direction and personally dictated by me. I have reviewed the chart and agree that the record accurately reflects my personal performance of the history, physical exam, medical decision making, and the department course for this patient. I have also personally directed, reviewed, and agree with the discharge instructions and disposition. Decision To Admit - Pt Status Changed To: Hospital Disposition Of: Observation - . Bed Request Type: Regular Patient Diagnosis: Chronic congestive heart failure, Chr obstructive pulmonary disease w/ acute lower respiratory infxn, Dyspnea
--- NOTE | 2017-02-23 17:14 | RAD ---
PROCEDURE: CHEST RADIOGRAPH, 1 VIEW HISTORY: SOB COMPARISON: 05/07/2015 FINDINGS: LUNGS: Mild venous congestion. Biapical pleural thickening with upper lobe granulomatous changes. PLEURA: No pneumothorax or pleural fluid seen. CARDIOVASCULAR: Normal. OSSEOUS STRUCTURES: No significant abnormalities. VISUALIZED UPPER ABDOMEN: Normal. OTHER FINDINGS: None. IMPRESSION: Mild venous congestion. Biapical pleural thickening with upper lobe granulomatous changes.
[2017-02-24] MEDS ORDERED: Albuterol-Ipratrop 3 mg / 0.5 (3 ml) UD INH STA (00:04)
[2017-02-24] MEDS ORDERED: Azithromycin 500mg/250ML NS 500 MG/250 ML BAG IVPB SCH (00:15)
[2017-02-24] MEDS: Albuterol-Ipratrop 3 mg / 0.5 (3 ml) UD INH SCH ×4 (01:26→19:46)
[2017-02-24] MEDS: Enoxaparin 40 mg Syringe SC SCH (09:25)
--- NOTE | 2017-02-24 10:52 | CARD ---
APPROVED REPORT EKG Measurement Heart [id number] <Conclusion> Normal sinus rhythm Minimal voltage criteria for LVH, may be normal variant Borderline ECG
[2017-02-24] MEDS ORDERED: Benzocaine/Menthol (Cepacol) Lozenge MT PRN (15:17)
--- NOTE | 2017-02-24 15:32 | CP.PCM.CON ---
History of Present Illness - History of Present Illness History of Present Illness: Reason for consultation: Shortness of breath 71-year-old female with hypertension, arthritis, coronary artery disease status post stent placement, presented to the emergency department complaining of shortness of breath at home just prior to arrival. Patient used her inhaler without any relief.. Patient reports she has not smoked cigarettes since 2010. She also denies having a nebulizer, using home oxygen, or any chest pain. Patient states that the shortness of breath started with dry cough with some throat pain Review of Systems - Review of Systems All systems: reviewed and no additional remarkable complaints except (Shortness of breath and cough which is mostly dry) Past Patient History - Past Medical History & Family History Past Medical History?: Yes - Past Social History Smoking Status: Former Smoker - CARDIAC Hx Cardiac Disorders: Yes Hx Congestive Heart Failure: Yes Hx Hypercholesterolemia: Yes Hx Hypertension: Yes - PULMONARY Hx Respiratory Disorders: Yes Hx Chronic Obstructive Pulmonary Disease (COPD): Yes - NEUROLOGICAL Hx Neurological Disorder: No - HEENT Hx HEENT Problems: No - RENAL Hx Chronic Kidney Disease: No - ENDOCRINE/METABOLIC Hx Endocrine Disorders: No - HEMATOLOGICAL/ONCOLOGICAL Hx Blood Disorders: No - INTEGUMENTARY Hx Dermatological Problems: No - MUSCULOSKELETAL/RHEUMATOLOGICAL Hx Musculoskeletal Disorders: No Hx Falls: No - GASTROINTESTINAL Hx Gastrointestinal Disorders: Yes Other/Comment: colonic polyps.GI bleed - GENITOURINARY/GYNECOLOGICAL Hx Genitourinary Disorders: No - PSYCHIATRIC Hx Psychophysiologic Disorder: No Hx Substance Use: No - SURGICAL HISTORY Hx Surgeries: Yes Hx Coronary Stent: Yes (2 stents) Other/Comment: Colonoscopy 2 weeks ago - ANESTHESIA Hx Anesthesia: Yes Hx Anesthesia Reactions: No Hx Malignant Hyperthermia: No Meds Allergies/Adverse Reactions: Allergies Allergy/AdvReac Type Severity Reaction Status Date / Time Penicillins Allergy Severe ANAPHYLAXIS Verified 02/23/17 13:47 - Medications Medications: Current Medications Albuterol/Ipratropium (Duoneb 3 Mg/0.5 Mg (3 Ml) Ud) 3 ml INH RQ6 [facility] Last Admin: 02/24/17 13:04 Dose: 3 ml Amlodipine Besylate (Norvasc) 2.5 mg PO DAILY [facility] Last Admin: 02/24/17 09:25 Dose: 2.5 mg Benzocaine/Menthol (Cepacol Sore Throat) 1 [place] Q4 PRN PRN Reason: Sore Throat Carvedilol (Coreg) 12.5 mg PO DAILY [facility] Last Admin: 02/24/17 09:25 Dose: 12.5 mg Enoxaparin Sodium (Lovenox) 40 mg SC DAILY [facility] Last Admin: 02/24/17 09:25 Dose: 40 mg Famotidine (Pepcid) 20 mg PO DAILY [facility] Last Admin: 02/24/17 09:25 Dose: 20 mg Furosemide (Lasix) 40 mg IVP ONCE ONE Stop: 02/24/17 15:13 Hydralazine HCl (Apresoline) 50 mg PO BID [facility] Last Admin: 02/24/17 09:25 Dose: 50 mg Azithromycin (Zithromax 500mg In Ns Addvantage) 500 mg in 250 mls @ 167 mls/hr IVPB Q24H [facility] Last Admin: 02/24/17 00:39 Dose: 167 mls/hr Methylprednisolone (Solu-Medrol) 60 mg IV Q8 [facility] Last Admin: 02/24/17 13:53 Dose: 60 mg Rosuvastatin Calcium (Crestor) 20 mg PO [facility] Physical Exam - Head Exam Head Exam: ATRAUMATIC, NORMOCEPHALIC - Eye Exam Eye Exam: Normal appearance - ENT Exam ENT Exam: Mucous Membranes Moist - Neck Exam Neck exam: Positive for: Normal Inspection - Respiratory Exam Respiratory Exam: Clear to Auscultation Bilateral - Cardiovascular Exam Cardiovascular Exam: REGULAR RHYTHM - GI/Abdominal Exam GI & Abdominal Exam: Normal Bowel Sounds, Soft - Extremities Exam Extremities exam: Positive for: normal inspection - Neurological Exam Neurological exam: Alert, Oriented x3 Results - Vital Signs Recent Vital Signs: Last Vital Signs Temp 97.4 F L 02/24/17 09:36 Pulse 69 02/24/17 09:36 Resp 18 02/24/17 09:36 BP 158/70 H 02/24/17 09:36 Pulse Ox 96 02/24/17 09:36 - Labs Result Diagrams: 02/23/17 15:29 02/23/17 15:29 Assessment & Plan (1) COPD exacerbation Status: Acute Comment: Continue nebulizer treatment and IV steroids. Start Spiriva and budesonide. Pulmonary function test. Continue present treatment
[2017-02-24 15:53] VITALS: RESP 20
--- NOTE | 2017-02-24 20:00 | CON ---
DATE: 02/24/2017 REASON FOR CONSULTATION: Shortness of breath and coronary artery disease. HISTORY OF PRESENT ILLNESS: The patient is a 71-year-old female who has a history of allen ry artery disease with coronary stenting in 2010 and 2011 at [facility], according to the patient. The patient is a former smoker who quit in 2010. She has chronic obstructive lung dis ease, but does not require nasal O2 at home. The patient presents because of shortness of breath and dry cough. Denies any wheezing. The patient stated that she was admitted to ICU in January of last y ear for rectal bleeding and had colonoscopy with removal of polyps and was taken off Plavix at this t [facility]. SOCIAL HISTORY: The patient is a former smoker, nondrinker. MEDICATIONS: Hydralazine 50 mg b.i.d., Coreg 12.5 mg daily, Crestor 20 mg once a day, Lovenox 40 mg subcutaneous once a day, Norvasc 2.5 mg once a day, Pepcid 20 mg p.o. once a day, Solu-Medrol 60 mg i ntravenously q. 8 hours, Zithromax 500 mg intravenously daily. REVIEW OF SYSTEMS: No fever or chills. No productive cough. No wheezing. No loss of weight. Noti chantal chest pain. PHYSICAL EXAMINATION: GENERAL: The patient is an elderly female who does not appear to be in acute distress. VITAL SIGNS: Blood pressure 158/70, heart rate 69, temperature 97.4, respirations 18. HEENT: Normocephalic. NECK: No JVD. CHEST: Minimal rhonchi, no wheezing. HEART: S1, S2 regular. ABDOMEN: Soft. EXTREMITIES: No edema. LABORATORY DATA: SMA-7 is within normal limits except for glucose of 64. One set of troponin is neg ative. Yesterday, hemoglobin and hematocrit were 12.1 and 37.0. White count and platelet count are within normal limits. EKG revealed sinus rhythm at rate of 62, minimal voltage criteria for LVH. Chest x-ray revealed normal cardiac silhouette, prominent bronchovascular markings with mild pulmonar y congestion. Pathology report for the cecal polyp and descending colon polyp was tubular adenoma. ASSESSMENT: 1. Exacerbation of chronic obstructive lung disease. 2. Consider mild congestive heart failure. 3. Coronary artery disease, status post coronary stenting. 4. History of recent rectal bleeding, tubular adenoma of the cecum and ascending colon, status post polypectomy. RECOMMENDATIONS: Continue hydralazine at 50 mg twice a day, Coreg 12.5 mg daily, Crestor 20 mg once a day, Lovenox 40 mg once a day, Norvasc 2.5 mg once a day, Solu-Medrol 60 mg intravenously q. 8 hour s and Zithromax 500 mg daily. I will administer 1 dose of Lasix at 40 mg intravenously once and obta in an echocardiogram. Per Campoverde MD cc: [id number] TT: 02/24/2017 19:59:46 Confirmation # [id number] Dictation # [id number] ricky
[2017-02-25] MEDS: Azithromycin 500 MG in Sodium Chloride 0.9% 250 ML IVPB SCH (00:30)
[2017-02-25] MEDS: Albuterol-Ipratrop 3 mg / 0.5 (3 ml) UD INH SCH ×4 (02:32→20:03)
[2017-02-25 07:25] LABS: BASO % 0.1 % (0.0-2.0); HEMATOCRIT 35.8 % (34.0-47.0); LYMPH # 1.2 K/uL (1.0-4.3); LYMPH % 7.5 % (20.0-40.0); MEAN CELL VOLUME 82.1 fL (81.0-99.0); MEAN CORPUSCULAR HGB CONC 32.8 g/dL (33.0-37.0); MONO # 0.4 K/uL (0.0-0.8); MONO % 2.7 % (0.0-10.0); PLATELET COUNT 286 K/uL (130-400); RED CELL DISTRIBUTION WIDTH 12.5 % (11.5-14.5)
[2017-02-25 07:34] LABS: CHLORIDE 100 mmol/L (98-107)
[2017-02-25 07:35] LABS: POTASSIUM 3.8 mmol/L (3.6-5.2); SODIUM 140 mmol/L (132-148)
[2017-02-25 07:36] LABS: WHITE BLOOD COUNT 15.8 K/uL (4.8-10.8)
[2017-02-25 07:37] LABS: AST/SGOT 22 U/L (14-36); BILIRUBIN,TOTAL 0.4 mg/dL (0.2-1.3); CARBON DIOXIDE 29 mmol/L (22-30); GFR AFRICAN-AMERICAN > 60
[2017-02-25 07:38] LABS: ALKALINE PHOSPHATASE 71 U/L (38-126); ALT/SGPT 18 U/L (9-52); BLOOD UREA NITROGEN 26 mg/dL (7-17); CALCIUM 8.4 mg/dl (8.6-10.4); GLUCOSE,RANDOM 156 mg/dL (65-105); MAGNESIUM 2.2 mg/dL (1.6-2.3); PHOSPHOROUS 4.1 mg/dL (2.5-4.5); TOTAL PROTEIN 7.3 g/dL (6.3-8.3)
[2017-02-25 09:30] LABS: NEUTROPHIL 90 % (50-75); TOTAL CELLS COUNTED 100
[2017-02-25] MEDS: Enoxaparin 40 mg Syringe SC SCH (09:34)
--- NOTE | 2017-02-25 11:26 | CP.PCM.PN ---
Subjective - Date & Time of Evaluation Date of Evaluation: 02/25/17 Time of Evaluation: 09:30 - Subjective Subjective: Patient seen and examined. Still complaining of shortness of breath, dryness of throat and dry cough Denies fever or chills, denies chest pain Objective - Vital Signs/Intake and Output Vital Signs (last 24 hours): Temp Pulse Resp BP Pulse Ox 97.3 F L 71 20 165/75 H 98 02/25/17 08:07 02/25/17 08:07 02/25/17 08:07 02/25/17 09:33 02/25/17 08:07 Intake and Output: 02/25/17 02/25/17 06:59 18:59 Intake Total 490 Balance 490 - Medications Medications: Current Medications Albuterol/Ipratropium (Duoneb 3 Mg/0.5 Mg (3 Ml) Ud) 3 ml INH RQ6 [facility] Last Admin: 02/25/17 08:00 Dose: 3 ml Amlodipine Besylate (Norvasc) 2.5 mg PO DAILY [facility] Last Admin: 02/25/17 09:34 Dose: 2.5 mg Benzocaine/Menthol (Cepacol Sore Throat) 1 [place]is MT Q4 PRN PRN Reason: Sore Throat Carvedilol (Coreg) 12.5 mg PO DAILY [facility] Last Admin: 02/25/17 09:33 Dose: 12.5 mg Enoxaparin Sodium (Lovenox) 40 mg SC DAILY [facility] Last Admin: 02/25/17 09:34 Dose: 40 mg Famotidine (Pepcid) 20 mg PO DAILY [facility] Last Admin: 02/25/17 09:33 Dose: 20 mg Hydralazine HCl (Apresoline) 50 mg PO BID [facility] Last Admin: 02/25/17 09:33 Dose: 50 mg Azithromycin 500 mg/ Sodium (Chloride) 250 mls @ 167 mls/hr IVPB Q24H [facility] Last Admin: 02/25/17 00:30 Dose: 167 mls/hr Methylprednisolone (Solu-Medrol) 60 mg IV Q8 [facility] Last Admin: 02/25/17 05:58 Dose: 60 mg Rosuvastatin Calcium (Crestor) 20 mg PO HS [facility] Last Admin: 02/24/17 21:31 Dose: 20 mg - Labs Labs: 02/25/17 07:15 02/25/17 07:15 - Head Exam Head Exam: ATRAUMATIC, NORMOCEPHALIC - Eye Exam Eye Exam: Normal appearance - ENT Exam ENT Exam: Mucous Membranes Moist - Neck Exam Neck Exam: Normal Inspection - Respiratory Exam Respiratory Exam: Decreased Breath Sounds, Rhonchi - Cardiovascular Exam Cardiovascular Exam: REGULAR RHYTHM - GI/Abdominal Exam GI & Abdominal Exam: Soft, Normal Bowel Sounds Assessment and Plan (1) COPD exacerbation Assessment & Plan: Continue IV steroids, nebulizer treatment Budesonide and Spiriva Status: Acute
--- NOTE | 2017-02-25 13:08 | CP.PCM.PN ---
<Fercho Pearce - Last Filed: 02/25/17 21:30> Subjective - Date & Time of Evaluation Date of Evaluation: 02/25/17 Time of Evaluation: 07:10 - Subjective Subjective: 71 year old patient who smoked for 50 years, with a past medical history of CHF and COPD, presented to the emergency department complaining of shortness of breath at home just prior to arrival. She has a pump which gave her minimal relief. In the ED she was started on nebulizer treatments and IV steroids. She was then seen pulmonology who added Spiriva and budesonide. Today, on her third day of admission, she complained of difficulty breathing on room air, but stated she was fine on supplemental oxygen. She also complained of a dry cough. She denies headache, fever, chills, chest pain, N/V/D or any GI/ symptoms. Objective - Vital Signs/Intake and Output Vital Signs (last 24 hours): Temp Pulse Resp BP Pulse Ox 97.3 F L 71 20 165/75 H 98 02/25/17 08:07 02/25/17 08:07 02/25/17 08:07 02/25/17 09:33 02/25/17 08:07 Intake and Output: 02/25/17 02/25/17 06:59 18:59 Intake Total 490 Balance 490 - Medications Medications: Current Medications Albuterol/Ipratropium (Duoneb 3 Mg/0.5 Mg (3 Ml) Ud) 3 ml INH RQ6 [facility] Last Admin: 02/25/17 08:00 Dose: 3 ml Amlodipine Besylate (Norvasc) 2.5 mg PO DAILY [facility] Last Admin: 02/25/17 09:34 Dose: 2.5 mg Benzocaine/Menthol (Cepacol Sore Throat) 1 willis MT Q4 PRN PRN Reason: Sore Throat Budesonide (Pulmicort Respules) 0.5 mg INH RQ12 [facility] Carvedilol (Coreg) 12.5 mg PO DAILY [facility] Last Admin: 02/25/17 09:33 Dose: 12.5 mg Enoxaparin Sodium (Lovenox) 40 mg SC DAILY [facility] Last Admin: 02/25/17 09:34 Dose: 40 mg Famotidine (Pepcid) 20 mg PO DAILY [facility] Last Admin: 05/04/17 09:33 Dose: 20 mg Hydralazine HCl (Apresoline) 50 mg PO BID [facility] Last Admin: 02/25/17 09:33 Dose: 50 mg Azithromycin 500 mg/ Sodium (Chloride) 250 mls @ 167 mls/hr IVPB Q24H [facility] Last Admin: 02/25/17 00:30 Dose: 167 mls/hr Methylprednisolone (Solu-Medrol) 60 mg IV Q8 [facility] Last Admin: 02/25/17 05:58 Dose: 60 mg Rosuvastatin Calcium (Crestor) 20 mg PO HS [facility] Last Admin: 02/24/17 21:31 Dose: 20 mg Tiotropium [place] (Spiriva) 18 mcg INH RQ24 [facility] Tiotropium [place] (Spiriva Inhalation Handihaler Device) 1 inhaler INH ONCE ONE Stop: 02/26/17 08:01 - Labs Labs: 02/25/17 07:15 02/25/17 07:15 - Constitutional Appears: Non-toxic, No Acute Distress - Head Exam Head Exam: ATRAUMATIC, NORMOCEPHALIC - Eye Exam Eye Exam: EOMI - ENT Exam ENT Exam: Normal Oropharynx - Neck Exam Neck Exam: Full ROM. absent: Lymphadenopathy, Thyromegaly - Respiratory Exam Respiratory Exam: Wheezes (Expiratory), NORMAL BREATHING PATTERN - Cardiovascular Exam Cardiovascular Exam: REGULAR RHYTHM, RRR, +S1, +S2. absent: JVD - GI/Abdominal Exam GI & Abdominal Exam: Soft, Normal Bowel Sounds. absent: Tenderness - Extremities Exam Extremities Exam: Full ROM. absent: Joint Swelling, Tenderness - Back Exam Back Exam: NORMAL INSPECTION - Neurological Exam Neurological Exam: Alert, Awake, CN II-XII Intact, Normal Gait, Oriented x3 - Psychiatric Exam Psychiatric exam: Normal Affect, Normal Mood - Skin Skin Exam: Dry, Intact, Normal Color, Warm Assessment and Plan - Assessment and Plan (Free Text) Plan: COPD Exacerbation Duonebs INH q6 ethel Budesonide INH q12 ethel Spiriva 18mcg inh q24 ethel Azithromycin 500mg in NaCl NC 3L w/humidifier Echo - needs official read CXR -please see full report - mild venous congestion, biapical pleural thickening with upper lobe granulomatous changes EKG -NSR @62, min voltage crit for LVH, may be normal variant, borderline EKG HTN Norvasc 2.5mg PO daily Carvedilol 12.5mg PO daily Hydralazine 50mg PO BID [facility] Crestor 20mg PO HS ethel PPX Lovenox 40mg SC daily Pepcid 20mg PO daily dispo PT/OT <Riley Posey H - Last Filed: 02/26/17 09:17> Objective - Vital Signs/Intake and Output Vital Signs (last 24 hours): Temp Pulse Resp BP Pulse Ox 98 F 64 20 166/74 H 96 02/26/17 07:46 02/26/17 07:46 02/26/17 07:46 02/26/17 07:46 02/26/17 07:46 - Medications Medications: Current Medications Albuterol/Ipratropium (Duoneb 3 Mg/0.5 Mg (3 Ml) Ud) 3 ml INH RQ6 [facility] Last Admin: 02/26/17 07:20 Dose: 3 ml Amlodipine Besylate (Norvasc) 2.5 mg PO DAILY [facility] Last Admin: 02/25/17 09:34 Dose: 2.5 mg Benzocaine/Menthol (Cepacol Sore Throat) 1 willis MT Q4 PRN PRN Reason: Sore Throat Budesonide (Pulmicort Respules) 0.5 mg INH RQ12 [facility] Last Admin: 02/26/17 07:20 Dose: 0.5 mg Carvedilol (Coreg) 12.5 mg PO DAILY [facility] Last Admin: 02/25/17 09:33 Dose: 12.5 mg Enoxaparin Sodium (Lovenox) 40 mg SC DAILY [facility] Last Admin: 02/25/17 09:34 Dose: 40 mg Famotidine (Pepcid) 20 mg PO DAILY [facility] Last Admin: 02/25/17 09:33 Dose: 20 mg Hydralazine HCl (Apresoline) 50 mg PO BID [facility] Last Admin: 02/25/17 17:33 Dose: 50 mg Azithromycin 500 mg/ Sodium (Chloride) 250 mls @ 167 mls/hr IVPB Q24H [facility] Last Admin: 02/26/17 00:46 Dose: 167 mls/hr Methylprednisolone (Solu-Medrol) 60 mg IV Q8 [facility] Last Admin: 02/26/17 06:43 Dose: 60 mg Rosuvastatin Calcium (Crestor) 20 mg PO HS [facility] Last Admin: 02/25/17 21:22 Dose: 20 mg Tiotropium [place] (Spiriva) 18 mcg INH RQ24 [facility] - Labs Labs: 02/26/17 07:32 02/26/17 07:32 Attending/Attestation - Attestation I have personally seen and examined this patient.: Yes I have fully participated in the care of the patient.: Yes I have reviewed all pertinent clinical information, including history, physical exam and plan: Yes Notes (Text): Medical Attending: Patient was seen and examined by me. Agree with the above note by the resident. Patient had just gotten echo done and the results of which were not posted yet. She does have a history of CHF. She says she feels her breathing is better than before. She is now on Spiriva and Pulmicort for her history of COPD, as well as IV solumedrol. Needs PT/OT evaluation If she appears better tommorow then plan on decreasing the IV solumedrol Riley Posey
--- NOTE | 2017-02-25 16:37 | PN ---
DATE: 02/25/2017 The patient denies any chest pain or shortness of breath. No reports of rectal bleeding. PHYSICAL EXAMINATION: VITAL SIGNS: Blood pressure 165/73, heart rate 71, temperature 97.3, respirations 20. HEENT: Normocephalic. NECK: No JVD. CHEST: Clear. HEART: S1, S2 regular. EXTREMITIES: No edema. LABORATORIES: Today's SMA-7 is within normal limits except for glucose of 156 and BUN of 26. CBC: WBC 15.8, hemoglobin 11.8, hematocrit 35.8, platelet count 286,000. ASSESSMENT: 1. Exacerbation of chronic obstructive lung disease. 2. Rule out congestive heart failure. 3. Coronary artery disease status post coronary artery stenting. 4. History of rectal bleeding last year, status post polypectomy. 5. Hypertension. RECOMMENDATIONS: Continue hydralazine at 50 mg twice a day, IV Zithromax 500 mg daily, Coreg 12.5 mg daily, Crestor 20 mg once a day, Norvasc at 2.5 mg once a day, Lovenox 40 mg subcutaneously daily, S shonda-Medrol at 60 mg intravenously q. 8 hours. I will review the echocardiographic study which was pe rformed today. Per Campoverde MD cc: [id number] TT: 02/25/2017 16:36:56 Confirmation # [id number] Dictation # [id number] ricky
[2017-02-25] MEDS: Budesonide 0.5 mg/2 ml Inhal Susp UD INH SCH (20:03)
[2017-02-26] MEDS: Azithromycin 500 MG in Sodium Chloride 0.9% 250 ML IVPB SCH (00:46)
[2017-02-26] MEDS: Albuterol-Ipratrop 3 mg / 0.5 (3 ml) UD INH SCH ×4 (01:41→20:08)
--- NOTE | 2017-02-26 04:08 | HP ---
This is a late entry. HISTORY OF PRESENT ILLNESS: The patient is a 71-year-old female with history of multiple medical problems including hypertension, coronary artery disease and smoker, who now presented to my office on the day of admission for shortness of breath and wheezing. The patient was sent to Emergency Room, where she was evaluated and found to have exacerbation of chronic obstructive pulmonary disease, subsequently admitted for further management. The patient denied to have any fever. No cough or expectoration. The patient denied to be smoking lately. The patient was given IV steroids, as well as bronchodilators and admitted for further management. Other review of systems is negative. ALLERGIES: PENICILLIN. HOME MEDICATIONS: Amlodipine 2.5 mg daily, Crestor 20 mg daily, Pepcid 20 mg daily, Coreg 12.5 mg twice a day, hydralazine 50 mg twice a day. SOCIAL HISTORY: Smoker. No ETOH or substance abuse. FAMILY HISTORY: Not contributory. PHYSICAL EXAMINATION: GENERAL: The patient is in bed, in mild respiratory distress. VITAL SIGNS: Blood pressure 101/65, temperature 97.9, respiratory rate 16, pulse 85. HEENT: Pupils equal, reactive to light. Normal-appearing mucosa of the conjunctivae, oropharyngeal and nasal membrane mucosa. NECK: Supple. No JVD, no carotid bruit, no lymph node, no thyromegaly. CHEST AND LUNGS: Bilateral symmetrical expansion. Bilateral rhonchi all over lung cotter. CARDIOVASCULAR SYSTEM: PMI not localized. S1, S2. No additional sounds. ABDOMEN: Normoactive bowel sounds. No tenderness, no organomegaly, no masses. EXTREMITIES: No cyanosis, no clubbing, no edema. CENTRAL NERVOUS SYSTEM: Alert, awake, oriented x 3. No neurological deficits could be appreciated. ASSESSMENT: 1. Exacerbation of chronic obstructive pulmonary disease. 2. Acute bronchitis. 3. Hypertension. 4. Coronary artery disease. PLAN: IV steroids, bronchodilators, IV antibiotic. Cardiology consult. I will be away from 02/25/2017 to 02/25/2017. Hospitalist team will be covering for me. [facility] S Yaya SUAZO cc: [id number] TT: 02/26/2017 04:07:49 meghna SEYMOUR
[2017-02-26] MEDS: Budesonide 0.5 mg/2 ml Inhal Susp UD INH SCH ×2 (07:20→20:08)
[2017-02-26 07:54] LABS: BASO % 0.1 % (0.0-2.0); HEMATOCRIT 36.5 % (34.0-47.0); LYMPH # 1.4 K/uL (1.0-4.3); LYMPH % 9.7 % (20.0-40.0); MEAN CELL VOLUME 82.4 fL (81.0-99.0); MEAN CORPUSCULAR HEMOGLOBIN 26.8 pg (27.0-31.0); MEAN CORPUSCULAR HGB CONC 32.6 g/dL (33.0-37.0); MEAN PLATELET VOLUME 8.1 fL (7.2-11.7); MONO # 0.5 K/uL (0.0-0.8); MONO % 3.3 % (0.0-10.0); PLATELET COUNT 287 K/uL (130-400); RED CELL DISTRIBUTION WIDTH 12.9 % (11.5-14.5); WHITE BLOOD COUNT 14.6 K/uL (4.8-10.8)
[2017-02-26 07:58] LABS: CHLORIDE 100 mmol/L (98-107); SODIUM 140 mmol/L (132-148)
[2017-02-26 08:00] LABS: ALB/GLOB RATIO 0.9 (1.0-2.1); ALKALINE PHOSPHATASE 71 U/L (38-126); ALT/SGPT 19 U/L (9-52); AST/SGOT 21 U/L (14-36); BILIRUBIN,TOTAL 0.4 mg/dL (0.2-1.3); BLOOD UREA NITROGEN 29 mg/dL (7-17); CARBON DIOXIDE 30 mmol/L (22-30); GFR AFRICAN-AMERICAN > 60; TOTAL PROTEIN 6.7 g/dL (6.3-8.3)
[2017-02-26] MEDS ORDERED: Tiotropium 18 mcg Cap For Inhalation INH SCH (08:00)
[2017-02-26 08:01] LABS: CALCIUM 8.1 mg/dl (8.6-10.4); GLUCOSE,RANDOM 163 mg/dL (65-105); MAGNESIUM 2.2 mg/dL (1.6-2.3); PHOSPHOROUS 3.7 mg/dL (2.5-4.5)
[2017-02-26 09:34] LABS: NEUTROPHIL 89 % (50-75); TOTAL CELLS COUNTED 100
--- NOTE | 2017-02-26 09:52 | CP.PCM.PN ---
Subjective - Date & Time of Evaluation Date of Evaluation: 02/26/17 Time of Evaluation: 08:00 - Subjective Subjective: patient seen and examined. Patient states breathing is much improved Denies fever chills, denies chest pain Slight cough Objective - Vital Signs/Intake and Output Vital Signs (last 24 hours): Temp Pulse Resp BP Pulse Ox 98 F 64 20 166/74 H 96 02/26/17 07:46 02/26/17 07:46 02/26/17 07:46 02/26/17 07:46 02/26/17 07:46 - Medications Medications: Current Medications Albuterol/Ipratropium (Duoneb 3 Mg/0.5 Mg (3 Ml) Ud) 3 ml INH RQ6 [facility] Last Admin: 02/26/17 07:20 Dose: 3 ml Amlodipine Besylate (Norvasc) 2.5 mg PO DAILY [facility] Last Admin: 02/25/17 09:34 Dose: 2.5 mg Benzocaine/Menthol (Cepacol Sore Throat) 1 [place] Q4 PRN PRN Reason: Sore Throat Budesonide (Pulmicort Respules) 0.5 mg INH RQ12 [facility] Last Admin: 02/26/17 07:20 Dose: 0.5 mg Carvedilol (Coreg) 12.5 mg PO DAILY [facility] Last Admin: 02/25/17 09:33 Dose: 12.5 mg Enoxaparin Sodium (Lovenox) 40 mg SC DAILY [facility] Last Admin: 02/25/17 09:34 Dose: 40 mg Famotidine (Pepcid) 20 mg PO DAILY [facility] Last Admin: 02/25/17 09:33 Dose: 20 mg Hydralazine HCl (Apresoline) 50 mg PO BID [facility] Last Admin: 02/25/17 17:33 Dose: 50 mg Azithromycin 500 mg/ Sodium (Chloride) 250 mls @ 167 mls/hr IVPB Q24H [facility] Last Admin: 02/26/17 00:46 Dose: 167 mls/hr Methylprednisolone (Solu-Medrol) 60 mg IV Q8 [facility] Last Admin: 02/26/17 06:43 Dose: 60 mg Rosuvastatin Calcium (Crestor) 20 mg PO HS [facility] Last Admin: 02/25/17 21:22 Dose: 20 mg Tiotropium [place] (Spiriva) 18 mcg INH RQ24 [facility] - Labs Labs: 02/26/17 07:32 02/26/17 07:32 - Head Exam Head Exam: ATRAUMATIC, NORMOCEPHALIC - Eye Exam Eye Exam: Normal appearance - ENT Exam ENT Exam: Mucous Membranes Moist - Neck Exam Neck Exam: Full ROM, Normal Inspection - Respiratory Exam Respiratory Exam: Decreased Breath Sounds - Cardiovascular Exam Cardiovascular Exam: REGULAR RHYTHM - GI/Abdominal Exam GI & Abdominal Exam: Soft, Normal Bowel Sounds - Extremities Exam Extremities Exam: Normal Inspection - Neurological Exam Neurological Exam: Alert, Oriented x3 Assessment and Plan (1) COPD exacerbation Assessment & Plan: switch to p.o. prednisone continuoue spirive and albuterol stable from pulm standpoint Status: Acute
[2017-02-26] MEDS: Enoxaparin 40 mg Syringe SC SCH (12:22)
[2017-02-26] MEDS ORDERED: MethylPREDNISolone 40 mg Vial IV SCH (14:45)
--- NOTE | 2017-02-26 15:11 | PN ---
DATE: 02/26/2017 SUBJECTIVE: The patient denies any chest pain. Shortness of breath has improved. She complained of lower sacral pain. PHYSICAL EXAMINATION: VITAL SIGNS: Blood pressure 181/76, heart rate 64, temperature 98, respirations 20. HEENT: Normocephalic. NECK: No JVD. CHEST: Bilateral rhonchi. HEART: S1, S2 regular. EXTREMITIES: No edema. LABORATORIES: CBC: WBC 14.6, hemoglobin 11.9, hematocrit 36.5, platelet count 187,000. Today's SMA -7 is within normal limits except for glucose of 163 and BUN of 29. Echocardiographic study was perf ormed, but there is no report yet and it is not accessible to me on the [employer] database and I will review it once it is downloaded to the system. ASSESSMENT: 1. Exacerbation of chronic obstructive lung disease. 2. Coronary artery disease, status post coronary artery bypass surgery. 3. Hypertension. RECOMMENDATIONS: Continue current hydralazine at 50 mg twice a day, IV Zithromax at 500 mg daily, Co reg 12.5 mg once a day, Crestor 20 mg at bedtime, Lovenox at 40 mg subcutaneously once a day, Norvasc 2.5 mg once a day, Solu-Medrol 60 mg intravenously q. 8 hours, Spiriva 18 mcg inhalation daily. Per Campoverde MD cc: [id number] TT: 02/26/2017 15:10:33 Confirmation # [id number] Dictation # [id number] ricky
[2017-02-26 16:42] VITALS: BP 144/64; PULSE 72; TEMP 97.9; O2SAT 95
--- NOTE | 2017-02-26 21:28 | CP.PCM.DIS ---
<PearceFercho robin - Last Filed: 02/28/17 23:14> Provider - Provider Date of Admission: 02/24/17 17:09 Attending physician: Marta Javier MD Time Spent in preparation of Discharge (in minutes): 35 Diagnosis - Discharge Diagnosis (1) COPD exacerbation Status: Acute Hospital Course - Lab Results Lab Results: Most Recent Lab Values WBC 14.6 K/uL (4.8-10.8) H 02/26/17 07:32 RBC 4.43 Mil/uL (3.80-5.20) 02/26/17 07:32 Hgb 11.9 g/dL (11.0-16.0) 02/26/17 07:32 Hct 36.5 % (34.0-47.0) 02/26/17 07:32 MCV 82.4 fL (81.0-99.0) 02/26/17 07:32 MCH 26.8 pg (27.0-31.0) L 02/26/17 07:32 MCHC 32.6 g/dL (33.0-37.0) L 02/26/17 07:32 RDW 12.9 % (11.5-14.5) 02/26/17 07:32 Plt Count 287 K/uL (130-400) 02/26/17 07:32 MPV 8.1 fL (7.2-11.7) 02/26/17 07:32 Neut % (Auto) 86.9 % (50.0-75.0) H 02/26/17 07:32 Lymph % (Auto) 9.7 % (20.0-40.0) L 02/26/17 07:32 Angelina % (Auto) 3.3 % (0.0-10.0) 02/26/17 07:32 Eos % (Auto) 0.0 % (0.0-4.0) 02/26/17 07:32 Baso % (Auto) 0.1 % (0.0-2.0) 02/26/17 07:32 Neut # 12.7 K/uL (1.8-7.0) H 02/26/17 07:32 Lymph # 1.4 K/uL (1.0-4.3) 02/26/17 07:32 Angelina # 0.5 K/uL (0.0-0.8) 02/26/17 07:32 Eos # 0.0 K/uL (0.0-0.7) 02/26/17 07:32 Baso # 0.0 K/uL (0.0-0.2) 02/26/17 07:32 Neutrophils % (Manual) 89 % (50-75) H 02/26/17 07:32 Band Neutrophils % 1 % (0-2) 02/25/17 07:15 Lymphocytes % (Manual) 8 % (20-40) L 02/26/17 07:32 Monocytes % (Manual) 3 % (0-10) 02/26/17 07:32 Platelet Estimate Normal (NORMAL) 02/26/17 07:32 Hypochromasia (manual) Slight 02/26/17 07:32 Poikilocytosis (manual Slight 02/26/17 07:32 Anisocytosis (manual) Slight 02/26/17 07:32 Sodium 140 mmol/L (132-148) 02/26/17 07:32 Potassium 4.0 mmol/L (3.6-5.2) 02/26/17 07:32 Chloride 100 mmol/L (98-107) 02/26/17 07:32 Carbon Dioxide 30 mmol/L (22-30) 02/26/17 07:32 Anion Gap 14 (10-20) 02/26/17 07:32 BUN 29 mg/dL (7-17) H 02/26/17 07:32 Creatinine 0.8 MG/DL (0.7-1.2) 02/26/17 07:32 Est GFR ( Amer) > 60 02/26/17 07:32 Est GFR (Non-Af Amer) > 60 02/26/17 07:32 Random Glucose 163 mg/dL (65-105) H 02/26/17 07:32 Calcium 8.1 mg/dl (8.6-10.4) L 02/26/17 07:32 Phosphorus 3.7 mg/dL (2.5-4.5) 02/26/17 07:32 Magnesium 2.2 mg/dL (1.6-2.3) 02/26/17 07:32 Total Bilirubin 0.4 mg/dL (0.2-1.3) 02/26/17 07:32 AST 21 U/L (14-36) 02/26/17 07:32 ALT 19 U/L (9-52) 02/26/17 07:32 Alkaline Phosphatase 71 U/L (38-126) 02/26/17 07:32 Troponin I < 0.0120 ng/mL (0.00-0.120) 02/23/17 15:29 NT-Pro-B Natriuret Pep 382 pg/mL (0-900) 02/23/17 15:29 Total Protein 6.7 g/dL (6.3-8.3) 02/26/17 07:32 Albumin 3.3 g/dL (3.5-5.0) L 02/26/17 07:32 Globulin 3.5 gm/dL (2.2-3.9) 02/26/17 07:32 Albumin/Globulin Ratio 0.9 (1.0-2.1) L 02/26/17 07:32 - Hospital Course Hospital Course: 71 year old patient who smoked for 50 years, with a past medical history of CHF and COPD presented to the emergency department complaining of shortness of breath at home just prior to arrival. In the ED she was started on nebulizer treatments and IV steroids. She was then seen pulmonology who added Spiriva and budesonide. CXR showed mild venous congestion, biapical pleural thickening with upper lobe granulomatous changes. An EKG demonstrated NSR @62, min voltage crit for LVH, may be normal variant, borderline EKG. Her troponin came back negative. After 4 days of treatment, the patient felt better and was medically stable to be discharged home. This is a brief account of her stay. For more details, please see her chart. - Date & Time of H&P Date of H&P: 02/26/17 Time of H&P: 09:30 Discharge Exam - Head Exam Head Exam: ATRAUMATIC, NORMOCEPHALIC - Eye Exam Eye Exam: EOMI, Normal appearance - ENT Exam ENT Exam: Mucous Membranes Moist - Neck Exam Neck exam: Full Rom - Respiratory Exam Respiratory Exam: Clear to PA & Lateral, Wheezes (mild), NORMAL BREATHING PATTERN - Cardiovascular Exam Cardiovascular Exam: REGULAR RHYTHM, +S1, +S2. absent: JVD - GI/Abdominal Exam GI & Abdominal Exam: Normal Bowel Sounds, Soft. absent: Tenderness - Extremities Exam Extremities exam: full ROM, pedal pulses present - Neurological Exam Neurological exam: Alert, CN II-XII Intact, Normal Gait, Oriented x3, Reflexes Normal - Psychiatric Exam Psychiatric exam: Normal Affect, Normal Mood Discharge Plan - Discharge Medications Prescriptions: Albuterol HFA [Ventolin HFA 90 mcg/actuation (8 g)] 2 puff IH Q12 PRN #1 puff PRN Reason: Shortness Of Breath Budesonide [Pulmicort Respules] 0.25 mg INH RQ12 #60 hydroCHLOROthiazide [Microzide] 12.5 mg PO DAILY #30 cap Prednisone 10 mg PO BID #4 tab.ds.pk Prednisone 10 mg PO DAILY #3 tab.ds.pk Tiotropium [Spiriva] 18 mcg INH RQ24 #1 cap Tiotropium [place] Inhaler [Spiriva Inhalation Handihaler Device] 1 inhaler INH ONCE #1 inhaler - Follow Up Plan Condition: GUARDED Disposition: HOME/ ROUTINE Instructions: COPD (Chronic Obstructive Pulmonary Disease) (DC), COPD (Chronic Obstructive Pulmonary Disease) (GEN) Additional Instructions: Patient is medically stable for discharge. Please follow up with your primary care within 1 week. Please follow up with your Shake Cutter within 1 week. Please follow up with your Electrical Worker within 1 week. Thank you for allowing us to take part in your care. <Riley Posey - Last Filed: 03/08/17 07:26> Provider - Provider Date of Admission: 02/24/17 17:09 Attending physician: Marta Javier MD Hospital Course - Lab Results Lab Results: Most Recent Lab Values WBC 14.6 K/uL (4.8-10.8) H 02/26/17 07:32 RBC 4.43 Mil/uL (3.80-5.20) 02/26/17 07:32 Hgb 11.9 g/dL (11.0-16.0) 02/26/17 07:32 Hct 36.5 % (34.0-47.0) 02/26/17 07:32 MCV 82.4 fL (81.0-99.0) 02/26/17 07:32 MCH 26.8 pg (27.0-31.0) L 02/26/17 07:32 MCHC 32.6 g/dL (33.0-37.0) L 02/26/17 07:32 RDW 12.9 % (11.5-14.5) 02/26/17 07:32 Plt Count 287 K/uL (130-400) 02/26/17 07:32 MPV 8.1 fL (7.2-11.7) 02/26/17 07:32 Neut % (Auto) 86.9 % (50.0-75.0) H 02/26/17 07:32 Lymph % (Auto) 9.7 % (20.0-40.0) L 02/26/17 07:32 Angelina % (Auto) 3.3 % (0.0-10.0) 02/26/17 07:32 Eos % (Auto) 0.0 % (0.0-4.0) 02/26/17 07:32 Baso % (Auto) 0.1 % (0.0-2.0) 02/26/17 07:32 Neut # 12.7 K/uL (1.8-7.0) H 02/26/17 07:32 Lymph # 1.4 K/uL (1.0-4.3) 02/26/17 07:32 Angelina # 0.5 K/uL (0.0-0.8) 02/26/17 07:32 Eos # 0.0 K/uL (0.0-0.7) 02/26/17 07:32 Baso # 0.0 K/uL (0.0-0.2) 02/26/17 07:32 Neutrophils % (Manual) 89 % (50-75) H 02/26/17 07:32 Band Neutrophils % 1 % (0-2) 02/25/17 07:15 Lymphocytes % (Manual) 8 % (20-40) L 02/26/17 07:32 Monocytes % (Manual) 3 % (0-10) 02/26/17 07:32 Platelet Estimate Normal (NORMAL) 02/26/17 07:32 Hypochromasia (manual) Slight 02/26/17 07:32 Poikilocytosis (manual Slight 02/26/17 07:32 Anisocytosis (manual) Slight 02/26/17 07:32 Sodium 140 mmol/L (132-148) 02/26/17 07:32 Potassium 4.0 mmol/L (3.6-5.2) 02/26/17 07:32 Chloride 100 mmol/L (98-107) 02/26/17 07:32 Carbon Dioxide 30 mmol/L (22-30) 02/26/17 07:32 Anion Gap 14 (10-20) 02/26/17 07:32 BUN 29 mg/dL (7-17) H 02/26/17 07:32 Creatinine 0.8 MG/DL (0.7-1.2) 02/26/17 07:32 Est GFR ( Amer) > 60 02/26/17 07:32 Est GFR (Non-Af Amer) > 60 02/26/17 07:32 Random Glucose 163 mg/dL (65-105) H 02/26/17 07:32 Calcium 8.1 mg/dl (8.6-10.4) L 02/26/17 07:32 Phosphorus 3.7 mg/dL (2.5-4.5) 02/26/17 07:32 Magnesium 2.2 mg/dL (1.6-2.3) 02/26/17 07:32 Total Bilirubin 0.4 mg/dL (0.2-1.3) 02/26/17 07:32 AST 21 U/L (14-36) 02/26/17 07:32 ALT 19 U/L (9-52) 02/26/17 07:32 Alkaline Phosphatase 71 U/L (38-126) 02/26/17 07:32 Troponin I < 0.0120 ng/mL (0.00-0.120) 02/23/17 15:29 NT-Pro-B Natriuret Pep 382 pg/mL (0-900) 02/23/17 15:29 Total Protein 6.7 g/dL (6.3-8.3) 02/26/17 07:32 Albumin 3.3 g/dL (3.5-5.0) L 02/26/17 07:32 Globulin 3.5 gm/dL (2.2-3.9) 02/26/17 07:32 Albumin/Globulin Ratio 0.9 (1.0-2.1) L 02/26/17 07:32 Attending/Attestation - Attestation I have personally seen and examined this patient.: Yes I have fully participated in the care of the patient.: Yes I have reviewed all pertinent clinical information, including history, physical exam and plan: Yes
--- NOTE | 2017-03-02 10:56 | CARD ---
APPROVED REPORT EXAM: Two-dimensional and M-mode echocardiogram with Doppler and color Doppler. Other Information Quality : GoodRhythm : NSR INDICATION Dyspnea Congestive Heart Failure COPD SOB, VIRAL SYNDROM, STENT RISK FACTORS Hypertension Hyperlipidemia 2D DIMENSIONS LVOT Diameter2.0 (1.8-2.4cm) M-Mode DIMENSIONS RVDd1.01 (2.1-3.2cm)Left Atrium (MM)4.10 (2.5-4.0cm) IVSd0.83 (0.7-1.1cm)Aortic Root2.78 (2.2-3.7cm) LVDd5.62 (4.0-5.6cm)Aortic Cusp Exc.1.42 (1.5-2.0cm) PWd0.87 (0.7-1.1cm)FS (%) 23 % LVDs4.34 (2.0-3.8cm)LVEF (%)45 (>50%) Aortic Valve AoV Peak Rzeqgdpg867.8cm/sAoV VTI51.1cmAO Peak GR.16mmHg LVOT Peak Jlfbisnz99.9cm/sLVOT VTI28.43cmAO Mean GR.8mmHg BEKA (VMAX)1.35lq9BZH (VTI)1.85it9ZX P 1/2 Mupc011nv Mitral Valve MV E Xzkzvioa424.1cm/sMV A Bdezsboy090.9cm/sE/A ratio0.8 TDI E/Lateral E'0.0E/Medial E'0.0 Tricuspid Valve TR Peak Sgffpziy035fx/sTR Peak Gr.94gyIkDJMC62siCt LEFT VENTRICLE The left ventricle is normal size. There is mild concentric left ventricular hypertrophy. Left ventricle ejection fraction is moderately impaired. The Ejection Fraction is 40-45%. No regional wall motion abnormalities noted. Tissue Doppler imaging reveals abnormal left ventricular diastolic dysfunction. No left ventricle thrombus noted on this study. There is no ventricular septal defect visualized. There is no left ventricular aneurysm. There is no mass noted in the left ventricle. RIGHT VENTRICLE The right ventricle is normal size. There is normal right ventricular wall thickness. The right ventricular systolic function is normal. ATRIA The left atrium is borderline dilated. The right atrium size is normal. The interatrial septum is intact with no evidence for an atrial septal defect. AORTIC VALVE The aortic valve is normal in structure and function. There is mild to moderate aortic regurgitation. There is mild valvular aortic stenosis. Calculated aortic valve area is 1.3 cm2 with maximum pressure gradient of mmHg and mean pressure gradient of mmHg. There is no aortic valvular vegetation. MITRAL VALVE The mitral valve is normal in structure and function. There is no evidence of mitral valve prolapse. There is no mitral valve stenosis. Mitral regurgitation is mild to moderate. TRICUSPID VALVE The tricuspid valve is normal in structure and function. There is no tricuspid valve regurgitation noted. There is no tricuspid valve prolapse or vegetation. There is no tricuspid valve stenosis. PULMONIC VALVE The pulmonary valve is normal in structure and function. There is no pulmonic valvular regurgitation. There is no pulmonic valvular stenosis. GREAT VESSELS The aortic root is normal in size. The ascending aorta is normal in size. The pulmonary artery is normal. The IVC is normal in size and collapses >50% with inspiration. PERICARDIAL EFFUSION The pericardium appears normal. There is no pleural effusion. <Conclusion> The left ventricle is normal size. There is mild concentric left ventricular hypertrophy. The Ejection Fraction is 40-45%. There is mild to moderate aortic regurgitation. There is mild valvular aortic stenosis. The left atrium is borderline dilated.
== END 2017-02-26 21:12 | disposition home or self-care (01) | DRG 192 ==
LOC: C.ER 13:38 → C.9E 18:16 → C.5T 18:52 → OBSVTOIN 02-24 17:09
PROVIDERS: ADMIT Internal Medicine; ATTEND Internal Medicine
DX: J44.0 Chronic obstructive pulmonary disease with (acute) lower respiratory infection (principal); I11.0 Hypertensive heart disease with heart failure; I50.9 Heart failure, unspecified; J44.1 Chronic obstructive pulmonary disease with (acute) exacerbation; Z79.01 Long term (current) use of anticoagulants; Z87.891 Personal history of nicotine dependence; E78.00 Pure hypercholesterolemia, unspecified; Z95.5 Presence of coronary angioplasty implant and graft; I25.10 Atherosclerotic heart disease of native coronary artery without angina pectoris; J20.9 Acute bronchitis, unspecified; M19.90 Unspecified osteoarthritis, unspecified site

== ENCOUNTER 2019-02-16 10:27 | Outpatient (CLI) | payer OTHER | END 2019-02-16 10:28 | disposition home or self-care (01) | LOC: C.CTH 10:27 | DX: Z12.2 Encounter for screening for malignant neoplasm of respiratory organs (principal) ==